=== PATIENT | male | born 1980 | race Caucasian/White ===

== ENCOUNTER 2019-05-31 20:50 | Emergency (ER) | payer SELFPAY, OTHER ==
[2019-05-31] MEDS: DIPHTH/TET/ACEL PERTUSS (ADULT) 0.5 ML VIAL IM* (21:58)
[2019-05-31] MEDS: LIDOCAINE 1% (MDV) 20 ML INJ SC (22:00)
== END 2019-06-01 01:10 | disposition home or self-care (01) ==
LOC: FTE 20:50
DX: S61.012A Laceration without foreign body of left thumb without damage to nail, initial encounter (principal); W26.0XXA Contact with knife, initial encounter; Y92.9 Unspecified place or not applicable; Z23 Encounter for immunization
CPT/HCPCS: 12002; 90471; 90715; 99283-25

== ENCOUNTER 2019-06-02 12:06 | Emergency (ER) | payer MEDICAID | END 2019-06-02 13:20 | disposition home or self-care (01) | LOC: E/R 13:20 | DX: Z48.01 Encounter for change or removal of surgical wound dressing (principal) | CPT/HCPCS: 99281; Z7502 ==

== ENCOUNTER 2019-06-09 09:09 | Emergency (ER) | payer MEDICAID | END 2019-06-09 10:26 | disposition home or self-care (01) | LOC: FTE 10:26 | DX: Z48.02 Encounter for removal of sutures (principal) | CPT/HCPCS: 99281; Z7502 ==